=== PATIENT | male | born 1980 | race Two or more races ===

== ENCOUNTER 2017-07-08 17:07 | Emergency (ER) | payer MEDICAID, OTHER | END 2017-07-08 21:30 | disposition home or self-care (01) | LOC: FTE 17:07 | DX: R05 Cough (principal) | CPT/HCPCS: 99283; Z7502 ==

== ENCOUNTER 2017-08-09 08:14 | Emergency (ER) | payer MEDICAID | END 2017-08-09 09:29 | disposition home or self-care (01) | LOC: FTE 08:14 | DX: R05 Cough (principal) | CPT/HCPCS: 71045; 99284-25 ==